=== PATIENT | female | born 2000 | race Caucasian/White ===

== ENCOUNTER 2018-01-25 19:22 | Emergency (ER) | payer OTHER ==
--- NOTE | 2018-01-25 19:36 | ER Report ---
History and Physical Time Seen By MD: 19:36 Hx. of Stated Complaint: patient had a cough for the last week, no sputum production HPI/ROS CHIEF COMPLAINT: Cough HISTORY OF PRESENT ILLNESS: 17-year-old female patient presents to the emergency room with complaint of a cough. Patient states that she's had a cough for 2 weeks. She has been seen twice at [facility] and was started on inhalers. She states that today she was coughing more significantly. She states she was having some pain with coughing. She states that she became concerned that time she did take her albuterol as well as her fluticasone. She states there is no improvement with her coughing. She talked with a friend who is concerned that she may have emphysema and brought her to the emergency room for evaluation. Patient states that she currently is very nervous about having to get blood work done. Allergies: Coded Allergies: No Known Drug Allergies (Unverified , 01/25/18) Home Meds Reported Medications Fluticasone Prop 44 Mcg (FLOVENT HFA 44 MCG) 44 Mcg Inha, 44 MCG INH, INH 01/25/18 Albuterol Sulfate 90 Mcg/Act (PROAIR HFA 90 MCG/ACT) 8.5 Gm Hfa.aer.ad, 1-2 PUFF IH 3-4XD, INHALER 01/25/18 Past Medical/Surgical History Patient has a past medical history of reflux, ADHD, bipolar, RAD, suicide attempt. Patient denies any surgical history. Reviewed Nurses Notes: Yes Constitutional Vital Sign - Last 24 Hours 01/25/18 01/25/18 01/25/18 01/25/18 19:26 19:39 20:00 20:30 Temp 98.2 Pulse 120 115 116 114 Resp 22 20 B/P (MAP) 135/91 134/87 (103) 125/73 (90) 116/75 (89) Pulse Ox 98 99 96 94 O2 Delivery Room Air Room Air Room Air Room Air 01/25/18 01/25/18 01/25/18 01/25/18 20:53 21:00 21:15 21:30 Pulse 113 111 106 B/P (MAP) 130/86 (101) 119/79 (92) 118/72 (87) Pulse Ox 95 94 95 O2 Delivery Room Air Room Air Room Air 01/25/18 01/25/18 01/25/18/14/18 21:35 21:40 21:55 22:00 Pulse 106 115 109 B/P (MAP) 115/75 (88) Pulse Ox 95 94 95 O2 Delivery Room Air Room Air Room Air Physical Exam General Appearance: The patient is alert, has no immediate need for airway protection and no current signs of toxicity. ENT: Tympanic membranes are pearly-faulkner, auditory canals are patent, mucous membranes are moist. Respiratory: Chest is non tender, lungs are clear to auscultation. Cardiac: regular rate and rhythm Gastrointestinal: Abdomen is soft and non tender, no masses, bowel sounds normal. Musculoskeletal: Neck: Neck is supple and non tender. Extremities have full range of motion and are non tender. Skin: No rashes or lesions. DIFFERENTIAL DIAGNOSIS: After history and physical exam differential diagnosis was considered for bronchitis, pneumonia, reflux, asthma. Medical Decision Making EKG/Imaging Imaging TWO VIEW CHEST 01/25/2018 7:44 PM. INDICATION: Cough. History of asthma. COMPARISON: None. FINDINGS: Lungs are well-expanded. The lungs are clear. No pneumothorax or pleural effusion. Pulmonary vasculature is unremarkable. Heart size is normal. IMPRESSION: No acute cardiopulmonary abnormality. Report Dictated By: Arnaud Lugo MD at 01/25/2018 10:13 PM Report E-Signed By: Arnaud Lugo MD at 01/25/2018 10:14 PM ED Course/Re-evaluation ED Course Patient was medicated in exam room, history and physical were obtained. Differential diagnoses were considered. On examination lungs are clear, heart is regular, abdomen is soft and tender. X-rays done of the lungs. The x-ray was read by the radiologist as negative. I discussed the findings with the patient. Patient is currently taking medication for her reflux, which was one of my con cerns as causing the cough. We will go ahead and discharge patient home with benzonatate. She is to increase fluid intake, she does get plenty of rest. She is to follow-up with her primary care provider the next week. She is to the emergency room if condition worsens. I do not believe that we have any infectious process which is causing the cough. Especially with the cough going on for 2 weeks at this point time. Patient verbalized understanding and agreement with plan. Decision to Disposition Date: Jan 25, 2018 Decision to Disposition Time: 22:27 Depart Departure Latest Vital Signs Vital Signs Date Time Temp Pulse Resp B/P (MAP) Pulse Ox O2 Delivery O2 Flow Rate FiO2 01/25/18 22:00 115/75 (88) 01/25/18 21:55 109 95 Room Air 01/25/18 19:39 20 01/25/18 19:26 98.2 Impression: Primary Impression: Cough Condition: Improved Disposition: HOME OR SELF-CARE New Scripts Benzonatate (BENZONATATE) 200 Mg Capsule 200 MG PO TID PRN for COUGH, #15 CAP Prov: ARTURO REES 01/25/18 Patient Instructions: Acute Cough (ED) Additional Instructions: Increase fluid intake. Get plenty of rest. Follow up with your primary care provider in the next week. Return to the ER if condition worsens. Take the medication as prescribed. Continue with your normal medications, including the inhalers. ARTURO REES Jan 25, 2018 19:36
[2018-01-25] MEDS ORDERED: FLU44R INH (19:39)
[2018-01-25] MEDS ORDERED: ALBU8.5H IH (19:39)
--- NOTE | 2018-01-25 22:17 | RADIOLOGY IMAGING REPORT ---
FACILITY: [facility] PATIENT NAME: May Wills : 2000 MR: [id number] V: [id number] EXAM DATE: ORDERING PHYSICIAN: ARTURO REES TECHNOLOGIST: Location: [facility] Patient: May Wills : 2000 Visit/Account:[id number] Date of Sevice: 01/25/2018 TWO VIEW CHEST 01/25/2018 7:44 PM. INDICATION: Cough. History of asthma. COMPARISON: None. FINDINGS: Lungs are well-expanded. The lungs are clear. No pneumothorax or pleural effusion. Pulmo nary vasculature is unremarkable. Heart size is normal. IMPRESSION: No acute cardiopulmonary abnormality. Report Dictated By: Arnaud Lugo MD at 01/25/2018 10:13 PM Report E-Signed By: Arnaud Lugo MD at 01/25/2018 10:14 PM WSN:[id number]
[2018-01-25] MEDS ORDERED: BENZONATATE 100 MG CAP PO ONE (22:25)
[2018-01-25] MEDS ORDERED: BENZ200C15 PO (22:26)
[2018-01-25 22:30] VITALS: BP 115/69
== END 2018-01-25 22:45 | disposition home or self-care (01) ==
LOC: ER 19:47
DX: R05 Cough (principal)
CPT/HCPCS: 71046; 99283